=== PATIENT | male | born 1990 | race Two or more races ===

== ENCOUNTER 2018-03-31 16:31 | Emergency (ER) | payer BC, OTHER ==
[2018-03-31 16:48] VITALS: BP 140/83; PULSE 77; TEMP 98.4; BMI 23.1
[2018-03-31] MEDS ORDERED: KETOROLAC TROMETHAMINE 60 MG/2 ML VIAL IM ONE (17:22)
[2018-03-31] MEDS ORDERED: KETOROLAC TROMETHAMINE 60 MG/2 ML VIAL ONE (17:23)
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
== END 2018-03-31 18:11 | disposition home or self-care (01) ==
LOC: JERFT 16:31 → JER 16:31 → JERFT 18:11
PROC: 3E0233Z Introduction of Anti-inflammatory into Muscle, Percutaneous Approach (ICD-10-PCS; principal; 2018-03-31)
DX: S16.1XXA Strain of muscle, fascia and tendon at neck level, initial encounter (principal); V49.9XXA Car occupant (driver) (passenger) injured in unspecified traffic accident, initial encounter; Y92.488 Other paved roadways as the place of occurrence of the external cause; Y93.89 Activity, other specified; Y99.8 Other external cause status
CPT/HCPCS: 99281-25

== ENCOUNTER 2022-04-14 00:01 | Emergency (ER) | payer BC ==
[2022-04-14 00:18] VITALS: BP 114/73; PULSE 88; RESP 17; TEMP 98.1; BMI 23.3
[2022-04-14] MEDS ORDERED: LIDOCAINE 5% TOPICAL PATCH TP ONE (00:47)
[2022-04-14] MEDS ORDERED: KETOROLAC TROMETHAMINE 30 MG/1 ML VIAL IM ONE (00:47)
[2022-04-14] MEDS ORDERED: DEXAMETHASONE SOD PHOSPHATE 10 MG/1 ML VIAL IM ONE (00:47)
[2022-04-14] MEDS ORDERED: DEXAMETHASONE SOD PHOSPHATE 10 MG/1 ML VIAL ONE (00:59)
[2022-04-14] MEDS ORDERED: KETOROLAC TROMETHAMINE 30 MG/1 ML VIAL ONE (00:59)
[2022-04-14] MEDS ORDERED: LIDOCAINE 5% TOPICAL PATCH ONE (01:02)
[2022-04-14] MEDS ORDERED: LIDOCAINE PATCH REMOVAL MC ONE (13:00)
== END 2022-04-14 01:34 | disposition home or self-care (01) ==
LOC: JER 00:01
PROC: 3E0233Z Introduction of Anti-inflammatory into Muscle, Percutaneous Approach (ICD-10-PCS; principal; 2022-04-14)
PROC: 3E0233Z Introduction of Anti-inflammatory into Muscle, Percutaneous Approach (ICD-10-PCS; 2022-04-14)
DX: M54.41 Lumbago with sciatica, right side (principal)
CPT/HCPCS: 99284-25; J1100